=== PATIENT | female | born 1950 | race Caucasian/White ===

== ENCOUNTER 2017-06-09 16:33 | Observation (INO) | payer MEDICARE ==
[~2017-06-09 16:33] MED LIST: ISOVUE-370 76%-LOCM 1 ML ONE
[2017-06-09] MEDS ORDERED: Acetaminophen 500 MG TAB PO PRN (17:33)
[2017-06-09] MEDS ORDERED: Ondansetron HCl/PF 4 MG/2 ML Vial IVP PRN (17:33)
[2017-06-09] MEDS ORDERED: Bisacodyl 5 MG TAB PO PRN (17:34)
[2017-06-09 18:09] LABS: #Basophils 0.1 thou/uL (0.0-0.2); #Lymphocytes 1.4 thou/uL (1.20-3.40); #Monocytes 0.6 thou/uL (0.11-0.59); #Neutrophils 5.7 thou/uL (1.40-6.50); %Basophils 0.9 % (0.0-1.0); %Eosinophils 0.1 % (0.0-10.0); %Lymphocytes 18.3 % (21.0-51.0); %Neutrophils 73.7 % (42.0-75.0); Hemoglobin 16.4 g/dL (12.0-16.0); Mean Corpuscular HGB CONC 33.3 g/dL (32.0-36.0); Mean Corpuscular Hemoglobin 31.6 pg (27.0-31.0); Mean Corpuscular Volume 94.7 fl (81.0-99.0); Mean Platelet Volume 7.5 fL (7.4-10.4); Platelet Count 249 thou/uL (130-400); RBC Distribution Width 11.7 % (11.5-14.5); Red Blood Cell (RBC) Count 5.18 mill/uL (4.20-5.40); White Blood Cell (WBC) Count 7.8 thou/uL (4.8-10.8)
[2017-06-09 18:13] VITALS: BMI 28.1
[2017-06-09 18:29] LABS: ALT (SGPT) 14 U/L (8-55); AST (SGOT) 19 U/L (5-34); Albumin 4.3 g/dL (3.4-4.8); Alkaline Phosphatase 78 U/L (40-150); Anion Gap 14 mmol/L (10-20); BUN (Urea Nitrogen) 12 mg/dL (9.8-20.1); Bilirubin, Total 0.4 mg/dL (0.2-1.2); Calc. Creatinine Clearance 55 mL/min (70-130); Calcium 9.6 mg/dL (7.8-10.44); Carbon Dioxide 25 mmol/L (23-31); Chloride 102 mmol/L (98-107); Estimated GFR-MDRD 56; Globulin 3.1 g/dL (2.4-3.5); Glucose 100 mg/dL (80-115); Protein, Total 7.4 g/dL (6.0-8.3); Sodium 137 mmol/L (136-145)
--- NOTE | 2017-06-09 18:46 | PDOC.FPRHP ---
- History of Present Illness Chief Complaint: Abdominal pain History of Present Illness: 67 yo female with history of diverticulosis based on colonoscopy from 10 years ago and history of esophageal spasms who was transfered from [facility] for fever and abdominal pain. Patient endorses abdominal pain, cramping, and bloating since Tuesday. Associated symptoms include nausea, decreased appetite , and early satiety. Patient was diagnosed with diverticulosis in 2007, but reports she has never experienced an exercerbation. Patient notes fever over the past several days, as well. Her temperature has been as high as 102 F. Pain is generally located under left rib cage and radiates to left shoulder and back. Pain is described as dull in nature. Patient reports body aches during times of fever. She has only taken NSAIDs for pain control and denies diarrhea or bloody stools. Code status discussed at length with patient and her . Questions addressed. Patient would like to remain full code during hospitalization. ED Course: Patient was directly admitted. No ER course. - Allergies/Adverse Reactions Allergies Allergy/AdvReac Type Severity Reaction Status Date / Time No Known Allergies Allergy Verified 06/09/17 17:59 - Home Medications Medication Instructions Recorded Confirmed Type Multivit with Iron,Minerals 1 tablet PO DAILY 06/09/17 06/09/17 History [Multivitamins with Iron] No Known [No Known] 06/09/17 06/09/17 History - History PMHx: Esophageal spasms, Diverticulosis PSHx: Cholecytecomy 2002, Total vaginal Hyst BSO 2003 (reports reason due to cervical polyps) FHx: Mother: Smoker, Malignant Breast Cancer. Father: 90 years old, PVD, TIA vs CVA. Sister: from PE, Smoker Social: . No tobacco or drug use. Social and infrequent use of alcohol. - Review of Systems General: reports: fever/chills, weight/appetite/sleep changes, night sweats ( Chronic and intermittent since hyst), fatigue Eyes: denies: eye pain, vision changes ENT: denies: nasal congestion, rhinorrhea Respiratory: denies: cough, congestion, shortness of breath Cardiovascular: denies: chest pain, palpitation, edema, orthopnea Gastrointestinal: reports: nausea, abdominal pain. denies: vomiting, diarrhea, constipation, GI bleeding Genitourinary: denies: incontinence, dysuria Skin: denies: rashes, lesions, jaundice Musculoskeletal: denies: pain, tenderness, stiffness, swelling Neurological: denies: numbness, syncope, weakness Psychological: denies: anxiety, depression - Vital signs BP: 125/77 HR: 114 RR: 20 Tmax: 102 Pox: 95% on RA Wt: 63.2 kg - Physical Exam Constitutional: NAD, awake, alert and oriented, well developed HEENT: normocephalic and atraumatic, PERRLA, EOMI Neck: supple Heart: RRR, normal S1/S2, no murmurs/rubs/gallops, pulses present Lungs: CTAB, no respiratory distress, good air movement, no rales/rhonchi, no wheezing, no retractions Abdomen: soft, non-tender (Minimally tender to palpation in LUQ and LLQ), bowel sounds present, no masses/distention Musculoskeletal: normal structure, normal tone Neurological: no focal deficit Skin: no rash/lesions, capillary refill <2 seconds Heme/Lymphatic: no purpura, no petechia Psychiatric: normal mood and affect, good judgment and insight FMR H&P: Results - Labs Result Diagrams: 06/09/17 17:57 06/09/17 17:57 Lab results: WBC 7.8 thou/uL (4.8-10.8) 06/09/17 17:57 Hgb 16.4 g/dL (12.0-16.0) H 06/09/17 17:57 Hct 49.1 % (36.0-47.0) H 06/09/17 17:57 MCV 94.7 fl (81.0-99.0) 06/09/17 17:57 Plt Count 249 thou/uL (130-400) 06/09/17 17:57 Neutrophils % 73.7 % (42.0-75.0) 06/09/17 17:57 Sodium 137 mmol/L (136-145) 06/09/17 17:57 Potassium 4.0 mmol/L (3.5-5.1) 06/09/17 17:57 Chloride 102 mmol/L (98-107) 06/09/17 17:57 Carbon Dioxide 25 mmol/L (23-31) 06/09/17 17:57 BUN 12 mg/dL (9.8-20.1) 06/09/17 17:57 Creatinine 0.99 mg/dL (0.6-1.1) 06/09/17 17:57 Glucose 100 mg/dL (80-115) 06/09/17 17:57 Calcium 9.6 mg/dL (7.8-10.44) 06/09/17 17:57 Total Bilirubin 0.4 mg/dL (0.2-1.2) 06/09/17 17:57 AST 19 U/L (5-34) 06/09/17 17:57 ALT 14 U/L (8-55) 06/09/17 17:57 Alkaline Phosphatase 78 U/L (40-150) 06/09/17 17:57 Serum Total Protein 7.4 g/dL (6.0-8.3) 06/09/17 17:57 Albumin 4.3 g/dL (3.4-4.8) 06/09/17 17:57 FMR H&P: A/P - Problem List (1) Diverticulitis Current Visit: Yes Status: Acute Code(s): K57.92 - DVTRCLI OF INTEST, PART UNSP, W/O PERF OR ABSCESS W/O BLEED - Plan 1. Acute, mild, uncomplicated diverticulitis - Admitted to medical floor for observation - Treated with Ciprofloxacin and Flagyl - CT abdomen/pelvis pending - IVF as needed - VSS - Tylenol for fever - Zofran for nausea - Clear liquid diet, advance as tolerated 2. Hx esophageal spasms - No symptoms at this time - S/p balloon dilation per patient 3. DVT ppx - SCDs - H2 wiley PRN Disposition/LOS: Admit to medical unit for observation. Continue IV antibiotics and consider transitioning to PO antibiotics if patient remains clinically stable/clinically improves. FMR H&P: Upper Level - Plan Date/Time: 06/09/17 962 IJose MD, have evaluated this patient and agree with findings/plan as outlined by international specialist resident. Pertinent changes/additions are listed here. 67 yo CF with h/o diverticulosis seen on colonoscopy 10 yrs ago presents as direct transfer from [facility] for fever and abdominal pain. C/o dull, crampy abdominal pain located under the left rib cage and radiating to the left shoulder and back for the past 3 days. Associated with nausea, bloating, decreased appetite, and early satiety. Denies diarrhea or bloody stools. Has taken NSAIDs for pain control with some relief. Was able to tolerate eating an egg earlier today. No previous h/o diverticulitis. PE: Gen: AAOx3, NAD CV: RRR, no m/g/r Lungs: CTAB, non-labored Abd: soft, non-tender, no guarding or rigidity, +BS A/P: 1) Acute uncomplicated diverticulitis: place in observation overnight to medical. CT abd/pelvis pending. Patient appears euvolemic, IVF prn. IV Cipro and Flagyl started. Full liquid diet, advance as tolerated. Re-evaluate clinically in AM. Attending Addendum - Attending Addendum Date/Time: 06/09/17 281 I personally evaluated the patient and discussed the management with Dr. Cabrera and Dr. Lowe I agree with the History, Examination, Assessment and Plan documented above with any addition or exceptions noted below. 67 yo female with history of diverticulosis and esophageal spasm was seen at PCP 's office today and dx with diverticulosis. Symptoms present since Tuesday. Fevers up to 102. Abdominal pain, bloating, and loss of appetite are main complaints. Has taken NSAIDs for pain. VS reviewed. Labs reviewed and grossly normal. Imaging pending. Exam grossly benign. No rebound. Mild TTP LUQ/LLQ A/P 1. Mild Diverticulitis: Appears to be improving. Advance food. Start with full liquids. Start metronidazole and cipro. CT abdomen still pending. No need to trend labs. IV fluids as needed. 2. ppx: SCDs. Ambulation. H2 wiley as needed. Tania
[2017-06-09] MEDS ORDERED: Acetaminophen 325 MG TAB PO PRN (18:49)
[2017-06-09] MEDS ORDERED: Acetaminophen 650 MG Suppository PR PRN (18:49)
[2017-06-09 19:30] LABS: Bilirubin Negative (Negative); Blood, Urine Negative (Negative); Clarity CLEAR (Clear); Glucose, Urine (Dipstick) Negative (Negative); Leukocyte Negative (Negative); Nitrite Negative (Negative); Protein, Urine (Dipstick) Negative (Neg-Trace); Specific Gravity, Urine 1.021 (1.002-1.036); Urobilinogen 0.2 mg/dL (0.2-1.0)
[2017-06-09 19:33] LABS: Bacteria/HPF None Seen HPF (None Seen); Hyaline Casts/LPF 0-3 HYALINE CAST LPF (0-3 Hyaline); Pathc Cast-AUWi Flag 0.54 (0-2.49); RBC/HPF 0-3 HPF (0-3); WBC/HPF 0-3 HPF (0-3)
[2017-06-09] MEDS: metroNIDAZOLE 500 MG in Premix Bag 1 BAG IVPB SCH (20:00)
--- NOTE | 2017-06-09 21:49 | CT ---
CT OF ABDOMEN AND PELVIS 06/09/17 COMPARISON: None. HISTORY: Left sided pain, assess for diverticulitis. TECHNIQUE: Serial axial CT imaging at 5 mm intervals from lung bases through pubic symphysis with IV and oral co ntrast. Coronal reformatted imaging obtained. FINDINGS: The imaged lung bases are grossly unremarkable. No free intraperitoneal air. Uterus appears surgicall y absent as does gallbladder. The liver, spleen, pancreas, adrenal glands and kidneys appear unremarkable. There is diverticulosis involving the descending colon and the sigmoid colon. The appendix is unremar kable and there is no evidence for small bowel obstruction. There is minimal wall thickening and very subtle pericolonic fat stranding adjacent to the left colon in the region of the distal descending colon which may represent a mild degree of distal descending colonic diverticulitis. There is scattered atherosclerotic calcification of the abdominal aorta, most prominent in the infrar enal region. Imaged osseous structures demonstrate no acute findings. There is a lower lumbar spine d egenerative change. IMPRESSION: Findings suggesting a mild degree of distal descending colonic diverticulitis. POS: BO
[2017-06-10] MEDS: metroNIDAZOLE 500 MG in Premix Bag 1 BAG IVPB SCH ×2 (02:24→08:07)
--- NOTE | 2017-06-10 08:03 | PDOC.FM ---
- Subjective Subjective: Feeling well this morning. Her abdominal pain has improved markedly and she has no concerns this morning. She feels ready for discharge on PO medications. - Objective MAR Reviewed: Yes Vital Signs & Weight: Vital Signs (12 hours) Temp Pulse Resp BP Pulse Ox 06/10/17 07:40 98.6 F 72 18 110/76 95 06/10/17 07:26 97.9 F 69 20 06/10/17 04:00 97.9 F 69 20 120/71 96 06/10/17 00:00 98.6 F 65 18 99/64 99 Weight Weight 63.248 kg I&O: 06/09/17 06/10/17 06/11/17 06:59 06:59 06:59 Intake Total 250 Balance 250 Result Diagrams: 06/09/17 17:57 06/09/17 17:57 Radiology Reviewed by me: Yes <Lulu Chaparro - Last Filed: 06/10/17 10:16> - Objective Vital Signs & Weight: Vital Signs (12 hours) Temp Pulse Resp BP Pulse Ox 06/10/17 10:55 98.9 F 79 16 104/69 99 06/10/17 07:40 98.6 F 72 18 110/76 95 06/10/17 07:26 97.9 F 69 20 06/10/17 04:00 97.9 F 69 20 120/71 96 06/10/17 00:00 98.6 F 65 18 99/64 99 Weight Weight 63.248 kg I&O: 06/09/17 06/10/17 06/11/17 06:59 06:59 06:59 Intake Total 250 Balance 250 Result Diagrams: 06/09/17 17:57 06/09/17 17:57 <Lars Allen - Last Filed: 06/10/17 11:12> Phys Exam - Physical Examination Constitutional: NAD HEENT: moist MMs, sclera anicteric Neck: supple Respiratory: no wheezing, clear to auscultation bilateral Cardiovascular: RRR, no significant murmur Gastrointestinal: soft, no distention, positive bowel sounds mildly tender in LLQ Musculoskeletal: no edema, pulses present Neurological: non-focal, normal sensation, moves all 4 limbs Psychiatric: normal affect, A&O x 3 Skin: no rash, normal turgor, cap refill <2 seconds <Lulu Chaparro - Last Filed: 06/10/17 10:16> Dx/Plan (1) Diverticulitis Code(s): K57.92 - DVTRCLI OF INTEST, PART UNSP, W/O PERF OR ABSCESS W/O BLEED Status: Acute - Plan Plan: 1. Acute, mild, uncomplicated diverticulitis - Continue Ciprofloxacin and Flagyl - CT abdomen/pelvis consistent with mild descending diverticulitis - Tolerating PO - VSS - Tolerating full liquid diet 2. Hx esophageal spasms - No symptoms at this time - S/p balloon dilation per patient PPX: SCDs Dispo: Likely discharge later today if continues to tolerate PO and symptoms well-controlled <Lulu Chaparro - Last Filed: 06/10/17 10:16> Attending Addendum - Attending Addendum Date/Time: 06/10/17 1108 I personally evaluated the patient and discussed the management with Dr. Chaparro I agree with the History, Examination, Assessment and Plan documented above with any addition or exceptions noted below. Patient doing well abdomen benign, pt. afebrile tolerating po, ok to dismiss home on po antibiotic f/u 10-14 days at [facility]. Discussed care plan with patient who endorsed understanding.CT confirms diverticulitis without abscess. <Lars Allen - Last Filed: 06/10/17 11:12>
[2017-06-10] MEDS ORDERED: FLU VACC QS2017-18 36 mo. & older 0.5 ML SYRINGE IM ONE (09:00)
[2017-06-10] MEDS ORDERED: Enoxaparin Sodium 40 MG/0.4 ML SYRINGE SC SCH (09:00)
[2017-06-10 10:55] VITALS: BP 104/69; TEMP 98.9
--- NOTE | 2017-06-10 11:47 | DIS-2 ---
DATE OF ADMISSION: 06/09/2017 DATE OF DISCHARGE: 06/10/2017 RESIDENT: Lulu Chaparro M.D. ADMITTING ATTENDING: Rola Vega M.D. DISCHARGE ATTENDING: Lars Allen M.D. CONSULTS: None. PROCEDURES: CT abdomen and pelvis (06/09/2017): Findings suggesting a mild degree of distal descending colonic diverticulitis. PRIMARY DIAGNOSIS: Acute diverticulitis. SECONDARY DIAGNOSIS: History of esophageal spasms. DISCHARGE MEDICATIONS: 1. Ciprofloxacin 500 mg p.o. b.i.d. x9 days. 2. Flagyl 500 mg p.o. q.8 hours x9 days. HISTORY OF PRESENT ILLNESS AND HOSPITAL COURSE: Ms. Roach presented as a direct admission from clinic for concern of acute diverticulitis. A CT was performed, which showed findings consistent with this. Overnight, she remained stable and afebrile. She never required any IV fluids and was tolerating p.o. without issue prior to discharge. She was comfortable to continue antibiotics on an outpatient basis and precautions for worsening abdominal pain and concern for future development of abscesses were discussed. DISPOSITION: Stable. DISCHARGE INSTRUCTIONS: 1. Location: Home. 2. Diet: High fiber and hydration. 3. Activity: As tolerated. 4. Followup: With newly established PCP within 1-2 weeks. [facility]
== END 2017-06-10 11:02 | disposition home or self-care (01) ==
LOC: T4-A 16:33 → EDBD 16:33 → INTOOBSV 16:33
PROVIDERS: ADMIT Family Medicine; ATTEND Family Medicine
DX: K57.32 Diverticulitis of large intestine without perforation or abscess without bleeding (principal); Z79.899 Other long term (current) drug therapy; Z90.49 Acquired absence of other specified parts of digestive tract; Z98.890 Other specified postprocedural states
CPT/HCPCS: 74177; 80053; 81001; 85025; 96365; 96366 ×2; 96375; 96376; 97139; G0378; G0379; 36415; J0744; J2405

== ENCOUNTER 2021-10-08 16:14 | Outpatient (CLI) | payer MEDICARE | END 2021-10-08 16:15 | disposition home or self-care (01) | LOC: RAD 16:14 | PROVIDERS: ATTEND Student in an Organized Health Care Education/Training Program | DX: M79.671 Pain in right foot (principal) ==